=== PATIENT | female | born 1995 ===

== ENCOUNTER 2025-10-08 12:56 | Emergency (ER) | payer MEDICAID, OTHER ==
[~2025-10-08] VITALS: Ht 149.9 cm; Wt 66.5 kg
[2025-10-08 13:44] VITALS: BP 138/90; PULSE 97; RESP 18; TEMP 98; O2SAT 97
[2025-10-08] MEDS ORDERED: PENICILLIN G BENZ 1,200,000 UNITS/2 ML SYRG IM ONE (14:45)
--- NOTE | 2025-10-08 14:49 | ED.PDOC ---
History of Present Illness HPI Comments 30 y/o F, presents to the ED for CC of vaginal discharge. Patient states, she was told to have contracted syphilis [id number] ago. Patient reports, being instructed to follow up with the ED for treatment and to receive a penicillin shot. Patient denies fever, chills, sore-throat, or fatigue. Chief Complaint: Vaginal Discharge Time Seen by MD: 14:30 Reviewed Notes: Nurses Notes, Medications, Allergies Allergies: Coded Allergies: Acetaminophen (Verified Allergy, Severe, 10/08/25) Mushroom (Verified Allergy, Severe, 10/08/25) [place] (Verified Allergy, Severe, 10/08/25) Information Source: Patient Mode of Arrival: Ambulatory Severity: Moderate Timing: Weeks Duration: Since onset Prehospital treatment: None Past Medical History PAST MEDICAL HISTORY: Denies Surgical History: Denies all surgeries DENTOFACIAL ORTHOPEDICS DENTIST History: Denies all DENTOFACIAL ORTHOPEDICS DENTIST Hx Family History Family History: Unknown Social History Smoker: Non-Smoker Alcohol: Denies ETOH Use Drugs: Denies Drug Use Lives In: Home Constitutional: denies: chills, diaphoresis, fatigue, fever, malaise, sweats, weakness, others EENTM: denies: blurred vision, double vision, ear bleeding, ear discharge, ear drainage, ear pain, ear ringing, eye pain, eye redness, hearing loss, mouth allen n, mouth swelling, nasal discharge, nose bleeding, nose congestion, nose pain, photophobia, tearing, throat pain, throat swelling, voice changes, others Respiratory: denies: cough, hemoptysis, orthopnea, SOB at rest, shortness of breath, SOB with excertion, stridor, wheezing, others Cardiovascular: denies: chest pain, dizzy spells, diaphoresis, Dyspnea on exertion, edema, irregular heart beat, left arm pain, lightheadedness, palpitations, PND, syncope, others Gastrointestinal: denies: abdomen distended, abdominal pain, blood streaked bowels, constipated, diarrhea, dysphagia, difficulty swallowing, hematemesis, melena, nausea, poor appetite, poor fluid intake, rectal bleeding, rectal pain, vomiting, others Genitourinary: denies: abnormal vagina bleeding, burning, dyspareunia, dysuria, flank pain, frequency, hematuria, incontinence, pain, , vagina discharge, urgency, others Neurological: denies: dizziness, fainting, headache, left sided numbness, left sided weakness, numbness, paresthesia, pre-existing deficit, right sided numbness, right sided weakness, seizure, speech problems, tingling, tremors, weakness, others Musculoskeletal: denies: back pain, gout, joint pain, joint swelling, muscle pain, muscle stiffness, neck pain, others Integumetry: denies: bruises, change in color, change in hair/nails, dryness, laceration, lesions, lumps, rash, wounds, others Allergic/Immunocompromised: denies: Difficulty Healing, Frequent Infections, Hives, Itching, others Hematologic/Lymphatic: denies: anemia, blood clots, easy bleeding, easy bruising, swollen glands, others Endocrine: denies: excessive hunger, excessive sweating, excessive thirst, excessive urination, flushing, intolerance to cold, intolerance to heat, unexplained weight gain, unexplained weight loss, others Psychiatric: denies: anxiety, bipolar disorder, depression, hopeless, panic disorder, schizophrenia, sleepless, suicidal, others All Other Systems: Reviewed and Negative Physical Exam General Appearance: No Apparent Distress, Normal HEENT: Normal ENT Inspection, Pharynx Normal Neck: Full Range of Motion, Non-Tender, Normal, Normal Inspection Respiratory: Chest Non-Tender, Lungs Clear, No Accessory Muscle Use, No Respiratory Distress, Normal Breath Sounds Cardiovascular: No Edema, No Murmur, No Gallop, Normal Peripheral Pulses, Regular Rate/Rhythm Breast Exam: Deferred Gastrointestinal: No Organomegaly, Non Tender, No Pulsatile Mass, Normal Bowel Sounds, Soft Genitalia: Deferred Pelvic: Deferred Rectal: Deferred Extremities: No calf tenderness, Normal capillary refill, Normal inspection, Normal range of motion, Non-tender, No pedal edema Musculoskeletal : Apperance: Normal Neurologic: Alert, sales performance analyst II-XII nml as Tested, No Motor Deficits, Normal Affect, Normal Mood, No Sensory Deficits Cerebellar Function: Normal Reflexes: Normal Skin: Dry, Normal Color, Warm Lymphatic: No Adenopathy Was a procedure done? Was a procedure done?: No Differential Dx Considerations may include: STD, STI X-Ray, Labs, Meds, VS Vital Signs Date Time Temp Pulse Resp B/P (MAP) Pulse Ox O2 Delivery O2 Flow Rate FiO2 10/08/25 13:44 98.0 97 18 138/90 (106) 97 98.0 10/08/25 12:59 98.1 110 15 137/86 98 98.1 Time of 1ST Reevaluation: 15:00 Reevaluation 1ST: Unchanged Patient Education/Counseling: Diagnosis, Treatment Family Education/Counseling: No Family Present SEPSIS Sepsis Screen Date sepsis recognized/suspect: Oct 08, 2025 Time Sepsis recognized/suspect: 1301 Recent Procedure: No On Antibiotic Therapy: No Respiratory Rate >20: No Heart Rate >90: Yes Temp<36 C (96.8 F) or >38.3 C: No SBP <90 or MAP <65 mmHG: No New Acute Mental Status Change: No Is the patient on CPAP, BIPAP,: No Physician Orders Urinalysis (10/08/25 14:31) Chlamydia/Gc Amplification (10/08/25 14:31) Vital Signs Date Time Temp Pulse Resp B/P (MAP) Pulse Ox O2 Delivery O2 Flow Rate FiO2 10/08/25 13:44 98.0 97 18 138/90 (106) 97 98.0 10/08/25 12:59 98.1 110 15 137/86 98 98.1 Departure 1 Departure Time of Disposition: 16:44 (Patient with partner tested positive for syphilis. We will discharge patient home with outpatient follow up) Impression: Primary Impression: Exposure to syphilis Disposition: 01 HOME / SELF CARE / HOMELESS Condition: Stable Additional Instructions: It is important to follow up with the regular doctor as needed. Discharged With: Self Critical Care Note Critical Care Time?: No Stability Stability form required: No Heart Score Heart Score: Heart Score Response (Comments) Value History N/A 0 EKG N/A 0 Age N/A 0 Risk Factors N/A 0 Troponin N/A 0 Total 0 I personally scribed for PALMER VAZQUEZ MD ([email or web address]) on 10/08/25 at 14:49. Electronically submitted by Preethi Tran ([email or web address]). PALMER VAZQUEZ MD Oct 08, 2025 14:49
== END 2025-10-08 16:45 | disposition home or self-care (01) ==
LOC: EDBD 12:56 → ER 12:56
DX: A53.9 Syphilis, unspecified (principal); N89.8 Other specified noninflammatory disorders of vagina